=== PATIENT | male | born 1980 | race Caucasian/White ===

== ENCOUNTER 2017-05-31 00:26 | Emergency (ER) | payer SELFPAY ==
[2017-05-31] MEDS ORDERED: Amoxicillin/Potassium Clav 875 MG TAB ONE (00:50)
[2017-05-31] MEDS ORDERED: cefTRIAXone\\ROCEPHIN 1 GM VIAL ONE (00:50)
[2017-05-31] MEDS ORDERED: Lidocaine 1% 20 ML MDV ONE ×2 (00:52→00:55)
== END 2017-05-31 01:15 | disposition home or self-care (01) ==
LOC: BURERS 00:26
DX: S61.431A Puncture wound without foreign body of right hand, initial encounter (principal); S61.531A Puncture wound without foreign body of right wrist, initial encounter; L03.113 Cellulitis of right upper limb; F17.210 Nicotine dependence, cigarettes, uncomplicated; W55.01XA Bitten by cat, initial encounter; Y92.009 Unspecified place in unspecified non-institutional (private) residence as the place of occurrence of the external cause
CPT/HCPCS: 96372; J0696; J2001